=== PATIENT | female | born 1955 ===

== ENCOUNTER 2017-11-30 06:32 | Inpatient (IN) | payer OTHER ==
[2017-11-30 07:26] VITALS: BMI 29.8
[2017-11-30 07:57] LABS: BASO # 0.1 K/uL (0.0-0.2); BASO % 0.9 % (0.0-2.0); EOS # 0.2 K/uL (0.0-0.7); EOS % 2.7 % (0.0-4.0); HEMOGLOBIN 12.1 g/dL (12.0-16.0); LYMPH # 2.5 K/uL (1.0-4.3); LYMPH % 35.1 % (20.0-40.0); MEAN CELL VOLUME 79.4 fl (81.0-99.0); MEAN CORPUSCULAR HEMOGLOBIN 26.7 pg (27.0-31.0); MEAN CORPUSCULAR HGB CONC 33.7 g/dL (33.0-37.0); MONO # 0.6 K/uL (0.0-0.8); MONO % 8.7 % (0.0-10.0); NEUT # 3.7 K/uL (1.8-7.0); NEUT % 52.6 % (50.0-75.0); NRBC % 0.1 % (0.0-0.0); RBC 4.53 Mil/uL (3.80-5.20); RED CELL DISTRIBUTION WIDTH 15.8 % (11.5-14.5); WHITE BLOOD COUNT 7.1 K/uL (4.8-10.8)
[2017-11-30] MEDS ORDERED: Lactated Ringer's 1,000 ML IV ONE ×2 (08:00→11:15)
[2017-11-30] MEDS ORDERED: Propofol 10 mg/ml Inj (20 ML) ONE (08:11)
[2017-11-30] MEDS ORDERED: Rocuronium 10 mg/ml (5 ml) ONE (08:11)
[2017-11-30] MEDS ORDERED: Lidocaine 4% (Laryng-O-Jet) Kit MM ONE (08:12)
[2017-11-30] MEDS ORDERED: Succinylcholine 200 mg/10 ml Inj IV ONE (08:12)
[2017-11-30] MEDS ORDERED: Absorbable Gelatin Sponge Size 12-7 ONE (08:30)
[2017-11-30] MEDS ORDERED: Bupivacaine HCl 0.5% PF (30 ml) Inj ONE (08:30)
[2017-11-30] MEDS ORDERED: Bacitracin Ointment 30 GM TUBE ONE (08:31)
[2017-11-30] MEDS ORDERED: Thrombin Topical 5,000 Int Units Spray Kit ONE (08:31)
[2017-11-30] MEDS ORDERED: EPINEPHrine 1 mg/ml (1:1000) Inj ONE (08:42)
[2017-11-30] MEDS ORDERED: Midazolam 2 MG/2 ML VIAL ONE (08:57)
[2017-11-30] MEDS ORDERED: ePHEDrine 50 mg/ml Inj ONE (08:57)
[2017-11-30] MEDS ORDERED: Sodium Chloride 0.9% 20 ML IV ONE (09:06)
[2017-11-30] MEDS ORDERED: Dexamethasone 4 mg/1 ml ONE (09:42)
[2017-11-30] MEDS ORDERED: Phenylephrine 2.5% Opht Soln OD ONE (10:00)
[2017-11-30] MEDS ORDERED: Morphine 1 mg/ml preservative-free Inj(Duramorph) ONE (10:24)
[2017-11-30] MEDS ORDERED: EPINEPHrine 1 mg/ml (1:1000) Inj IV ONE (10:52)
[2017-11-30] MEDS ORDERED: Sodium Chloride 0.9% Inj (10mL) IV ONE (10:52)
[2017-11-30] MEDS ORDERED: Neostigmine 1:1000 (1 mg/ml) Inj ONE (10:52)
[2017-11-30] MEDS ORDERED: Bupivacaine 0.5% Inj(30mL) IJ ONE (10:52)
[2017-11-30] MEDS ORDERED: HYDROmorphone 0.5 mg/0.5 ml ISec IVP PRN (12:01)
--- NOTE | 2017-11-30 12:04 | PCM.SURG1 ---
Surgeon's Initial Post Op Note - Surgeon's Notes Surgeon: Emma Harvey MD Diving Judge: Aggie Palencia PA-C Type of Anesthesia: General Endo Pre-Operative Diagnosis: Right knee osteoarthritis Operative Findings: see op report Post-Operative Diagnosis: same as pre-op Operation Performed: R TKR Specimen/Specimens Removed: right knee bone and soft tissue Estimated Blood Loss: EBL {In ML}: 50 Date of Surgery/Procedure: 11/30/17 Time of Surgery/Procedure: 10:00
--- NOTE | 2017-11-30 12:37 | CP.PCM.HP ---
History of Present Illness - History of Present Illness History of Present Illness: 62 yo female with pmhx of HTN and HDL seen and evaluated in the PACU POD 0 s/p right total knee replacement. She has a hx of osteoarthritis of the right knee and had tried conservative therapy in the past which failed. Patient is mildly awake and alert, she tolerated well the procedure and states minimal pain. Due to anesthesia effects it is difficult to assess patient status and history. Chart and history reviewed. Patient denies N/V/F/C/SOB/CP at this time. PMHx: HLD, HTN PSHx: eye surgery FH: noncontributory. Meds: see bellow SH: denies tobacco, drinking and illicit drug use All: NKDA Present on Admission - Present on Admission Any Indicators Present on Admission: No Review of Systems - Review of Systems All systems: reviewed and no additional remarkable complaints except (HPI) Past Patient History - Past Medical History & Family History Past Medical History?: Yes - CARDIAC Hx Hypercholesterolemia: Yes Hx Hypertension: Yes - MUSCULOSKELETAL/RHEUMATOLOGICAL Hx Falls: No Hx Fractures: No Hx Osteoarthritis: Yes - SURGICAL HISTORY Hx Surgeries: Yes Hx Eye Surgery: Yes (R eye) - ANESTHESIA Hx Anesthesia: Yes Hx Anesthesia Reactions: No Hx Malignant Hyperthermia: No Has any member of the family had a problem w/ anesthesia?: No Meds Allergies/Adverse Reactions: Allergies Allergy/AdvReac Type Severity Reaction Status Date / Time No Known Allergies Allergy Verified 11/30/17 07:26 Physical Exam - Constitutional Appears: No Acute Distress - Eye Exam Eye Exam: EOMI, PERRL - Respiratory Exam Respiratory Exam: Clear to Auscultation Bilateral - Cardiovascular Exam Cardiovascular Exam: REGULAR RHYTHM, +S1, +S2 - GI/Abdominal Exam GI & Abdominal Exam: Soft. absent: Distended, Tenderness - Extremities Exam Extremities exam: Negative for: calf tenderness, pedal edema Additional comments: R knee immovilizer noted in place, dressing clean and dry. Results - Vital Signs Recent Vital Signs: Last Vital Signs Temp 96.2 F L 11/30/17 11:58 Pulse 88 11/30/17 12:15 Resp 18 11/30/17 12:15 BP 102/51 L 11/30/17 12:15 Pulse Ox 100 11/30/17 12:15 - Labs Result Diagrams: 11/30/17 07:49 Labs: Laboratory Results - last 24 hr 11/30/17 11/30/17 11/30/17 07:49 07:49 08:28 WBC 7.1 RBC 4.53 Hgb 12.1 Hct 36.0 MCV 79.4 L MCH 26.7 L MCHC 33.7 RDW 15.8 H Plt Count 179 MPV 10.0 Neut % (Auto) 52.6 Lymph % (Auto) 35.1 [place] % (Auto) 8.7 Eos % (Auto) 2.7 Baso % (Auto) 0.9 Neut # (Auto) 3.7 Lymph # (Auto) 2.5 [place] # (Auto) 0.6 Eos # (Auto) 0.2 Baso # (Auto) 0.1 Blood Type O POSITIVE Blood Type Confirm O POSITIVE Antibody Screen Negative BBK History Checked No verified bt Assessment & Plan - Assessment and Plan (Free Text) Assessment: 62 yo female patient with pmhx of osteoarthritis, HLD, and HTN admitted POD 0 s/p right total knee replacement. Plan: - surgical management as per Ortho - pain management - continue with home meds - f/u labs in am - DVT prophylaxis with lovenox start tomorrow - PT/OT consult, f/u recommendations Case discussed with Dr Srivastava.
--- NOTE | 2017-11-30 13:59 | RAD ---
Date of service: 11/30/2017 PROCEDURE: Right knee HISTORY: s/p RTKR COMPARISON: None TECHNIQUE: p.m. Lateral portable views right knee. FINDINGS: Components of the right knee arthroplasty in satisfactory position and alignment. Expected findings in the surgical bed/soft tissues. IMPRESSION: Satisfactory postoperative status.
[2017-11-30] MEDS ORDERED: ceFAZolin 1 GM in Sodium Chloride 0.9% 100 ML IVPB ONE ×2 (15:30→21:45)
[2017-11-30] MEDS ORDERED: ceFAZolin IV 1 gm in Dextrose 1 GM/50 ML BAG IVPB ONE ×2 (15:45→21:30)
[2017-11-30] MEDS: Lactated Ringer's 1,000 ML IV SCH (15:52)
[2017-11-30] MEDS: oxyCODONE 10 mg ER Tab (oxyCONTIN) PO SCH (21:37)
--- NOTE | 2017-12-01 00:19 | OP ---
PROCEDURE DATE: 11/30/2017 PREOPERATIVE DIAGNOSIS: Right knee osteoarthritis. POSTOPERATIVE DIAGNOSIS: Right knee osteoarthritis. PROCEDURE: Right total knee replacement. ATTENDING PHYSICIAN: Emma Harvey MD NUCLEAR PHYSICIST: Aggie Palencia PA-C IMPLANT SIZE: [employer] size-2 tibial tray, size-2 femur, size 15-mm polyethylene insert, 29-mm patella button. ANESTHESIA TYPE: General. ESTIMATED BLOOD LOSS: 100 mL. COMPLICATIONS: None. HISTORY: The patient with prolonged history of right knee pain progressively getting worse despite extensive conservative management, which included activity modification, injections, anti-inflammatory modification and physical therapy. X-rays had revealed advanced arthritis. The patient was indicated for total knee replacement due to continued pain and limited mobility. I had a detailed discussion with the patient in the office explaining the nature of the surgery, alternatives of surgery, risks and benefits, rehabilitation protocol and surgical markings. Risks of surgery include but not limited to continued pain, lack of motion, infection, vascular injury, DVT/PE, nerve injury including peroneal nerve dysfunction, reflex sympathetic dystrophy, compartment syndrome, unforeseen medical and/or anesthesia complications, limb loss, and even . The patient expressed an understanding of the risks and possible benefits of the procedure, and is also aware of the alternatives to surgery. PROCEDURE: On the day of the surgery, the patient was admitted to pre-operative holding area. A laterality sheet was completed confirming the correct operative site. The correct surgical knee was marked in the holding area and informed consent was signed from the patient. Once again, I reviewed the risks and benefits of the surgery with the patient in detail. These risks include but are not limited to continued pain, lack of motion, infection, vascular injury, DVT/PE, nerve injury including peroneal nerve dysfunction, reflex sympathetic dystrophy, symptomatic hardware, need for further procedure and surgeries, instability, iatrogenic fractures, compartment syndrome, unforeseen medical and/or anesthesia complications, limb loss, and even . The patient expressed an understanding of the risks and possible benefits of the procedure, also aware of the alternatives to surgery and signed the informed consent. The patient was transported to the operating room and placed in the supine position, general anesthesia was obtained. Exam under anesthesia revealed . A padded tourniquet was applied to patient's operative thigh and appropriate prophylactic antibiotics were given. The operative leg was draped and prepped in standard sterile manner. Time-out was completed, confirming patient's right knee to be the correct operative site. Using an Esmarch, the extremity was exsanguinated and tourniquet was inflated to 350 mmHg. The surgical incision markings were made using patella border, tibial tubercle, patella and quadriceps tendon. Using a 10 blade, a midline incision was made. Skin dissection was taken until the prepatellar fascia was identified and the corners of the patellar tendon were marked for proper closure at the end of the procedure. Using a fresh 10 blade, a medial parapatellar arthrotomy was performed. The knee was exposed in the standard manner. The deep MCL was elevated for exposure, medial and lateral menisci were removed, ACL and PCL were also transected. The tibia was subluxed anteriorly. Planned tibial cut was made with power saw, using extra-medullary guide, perpendicular to mechanical axis of the tibia. After the cut was made, the alignment was also checked and was found to be appropriate. Tibial cut surface was measured with trial base plate and it was noted that tibial baseplate was provide sufficient coverage without overhang. Tibial component was externally rotated and marked. Next, the knee was placed into 90 degrees of flexion. A drill hole was made within the femoral notch anterior to PCL insertion for placement of intramedullary femoral merlin. Intramedullary femoral merlin was inserted within the femoral canal and planned distal femoral cut was made. After the cut, knee was brought into full extension. Spacer blocks were used to check the extension balancing both in full extension and 30 degrees of flexion. It was found that a 15-mm trial spacer block allowed full extension with symmetric varus and valgus balancing. Next we proceed with Patella resurfacing. Lummi patella width was found to be 28 mm. Using the free-hand technique the arthritic patella surface was resected. Patella was sized using the guide and it was noted that 29 mm Patella dome button would be appropriate for the patient. Next the size of femoral component was determined using the posterior referencing guide. It was noted that a size-2 femur would be appropriate for this patient without causing any significant notching. A 4 x 1 cutting block was placed and flexion gap balancing was checked. The flexion gap was found to be symmetric to the extension gap. Anterior and posterior condyle, anterior and posterior chamfer cuts were made. Next, appropriate size box cut for femoral component was prepared using the guide. The femoral trial component was impacted onto the distal femur. Appropriate size tibial trial component was also placed on the cut surface of the tibia. Using the drill and punch, keel for tibial implant was prepared. Trial tibial tray was secured onto the tibia using pins. Different size trial polyethylene inserts were secured on to the trial tibial tray to critically assess the following parameters: Full range of motion, extension and flexion gap balancing, mid-flexion stability, anterior and posterior drawer, and patellar tracking. All parameter were found to be satisfactory with 15-mm insert. All the trial components were removed. Implants were opened on the back table. Cement was mixed and we proceed with cement fixation of the implants. Tibial tray, femoral component and patellar dome button were secured with cement. Polyethylene insert was secured onto the tibial tray using locking mechanism. The knee was reduced and brought into full extension. Cement was allowed to harden until final component fixation. Knee was taken through the final range of motion for stability testing, and found to be satisfactory. 60 mL of custom cocktail mixture was injected into posterior capsule, MCL, LCL, quadriceps tendon, and patellar tendon. Wound was copiously irrigated with sterile antibiotic solution using pulse lavage. Arthrotomy was closed using heavy suture and wound was closed in standard manner. Patient was extubated, transferred to stretcher and taken to the recovery room. Post-operative instructions were provided, physical therapy consult was requested along with DVT prophylaxis and appropriate pain medications. During this procedure, I was assisted by Nani Jimenez PA-C who assisted in positioning the patient on the operating room table as well as transferring the patient from the operating room table to the recovery room stretcher. In addition, Nani Jimenez PA-C assisted me during the actual operative procedure by positioning, protecting critical neurovascular structures, exposure of the joint, and proper positioning of the implants. The presence of Nani Jimenez PA-C as my operative it administrative assistant was medically necessary to ensure the utmost safety of the patient in the pre, intra-, and post-operative periods. Emma Harvey MD
[2017-12-01] MEDS: Lactated Ringer's 1,000 ML IV SCH ×2 (00:51→12:14)
[2017-12-01 06:50] LABS: HEMOGLOBIN 8.3 g/dL (12.0-16.0); LYMPH # 1.8 K/uL (1.0-4.3); LYMPH % 15.9 % (20.0-40.0); MEAN CELL VOLUME 78.9 fl (81.0-99.0); MEAN CORPUSCULAR HEMOGLOBIN 26.5 pg (27.0-31.0); MEAN CORPUSCULAR HGB CONC 33.6 g/dL (33.0-37.0); MEAN PLATELET VOLUME 9.8 fl (7.2-11.7); MONO # 0.9 K/uL (0.0-0.8); MONO % 8.2 % (0.0-10.0); NEUT # 8.7 K/uL (1.8-7.0); NEUT % 75.9 % (50.0-75.0); NRBC % 0.2 % (0.0-0.0); RBC 3.13 Mil/uL (3.80-5.20); RED CELL DISTRIBUTION WIDTH 15.7 % (11.5-14.5); WHITE BLOOD COUNT 11.4 K/uL (4.8-10.8)
[2017-12-01 06:56] LABS: BLOOD UREA NITROGEN 19 mg/dl (7-17); CALCIUM 8.9 mg/dL (8.4-10.2); GFR NON-AFRICAN AMERICAN > 60
--- NOTE | 2017-12-01 08:42 | CP.PCM.PN ---
Subjective - Date & Time of Evaluation Date of Evaluation: 12/01/17 Time of Evaluation: 08:25 - Subjective Subjective: 62 yo F s/p RTKR POD#1 Pt seen and examined at bedside, comfortable in bed Pt c/o mild right knee pain, currently well controlled with pain meds Pt denies SOB, chest pain, N/V/D, numbness/tingling RLE Objective - Vital Signs/Intake and Output Vital Signs (last 24 hours): Temp Pulse Resp BP Pulse Ox 98.4 F 80 20 101/59 L 98 12/01/17 08:28 12/01/17 08:28 12/01/17 08:28 12/01/17 08:28 12/01/17 08:28 - Medications Medications: Current Medications Acetaminophen (Tylenol 325mg Tab) 325 mg PO Q4 PRN PRN Reason: pain1-3 Aspirin (Ecotrin) 325 mg PO BID [facility] Celecoxib (Celebrex) 100 mg PO Q12 [facility] Last Admin: 11/30/17 21:41 Dose: 100 mg Docusate Sodium (Colace) 100 mg PO TID [facility] Last Admin: 11/30/17 17:28 Dose: 100 mg Enoxaparin Sodium (Lovenox) 40 mg SC DAILY [facility]; Protocol Hydromorphone HCl (Dilaudid) 0.5 mg IVP Q10M PRN PRN Reason: Pain, moderate (4-7) Lactated Ringer's (Lactated Ringer's) 1,000 mls @ 125 mls/hr IV .Q8H [facility] Last Admin: 12/01/17 00:51 Dose: 125 mls/hr Oxycodone HCl (Oxycontin Extended Release Tab) 10 mg PO Q12 [facility] Stop: 12/14/17 21:01 Last Admin: 11/30/17 21:37 Dose: 10 mg Oxycodone HCl (Oxycodone Immediate Release Tab) 5 mg PO Q4 PRN PRN Reason: pain4-6 - Labs Labs: 12/01/17 06:35 12/01/17 06:35 - Constitutional Appears: Well, Non-toxic, No Acute Distress - Respiratory Exam Respiratory Exam: Clear to Ausculation Bilateral, NORMAL BREATHING PATTERN - Cardiovascular Exam Cardiovascular Exam: REGULAR RHYTHM, RRR - Extremities Exam Additional comments: RLE: Knee dressing C/D/I +ttp right mid calf, calf soft and compressible, no ttp left calf N/V intact distally Distal pulses wnl Normal ROM right ankle No foot drop Assessment and Plan - Assessment and Plan (Free Text) Assessment: 62 yo F s/p RTKR POD#1 Plan: Pain Control DVT ppx- start aspirin 325mg BID today SCD b/l LE B/L LE venous US- r/o DVT RLE F/U daily labs- monitor h/h Incentive Spirometer PT/OT- WBAT RLE Discussed with Dr. Harvey
[2017-12-01] MEDS: Aspirin 325 mg EC Tablets PO SCH ×2 (08:52→16:52)
[2017-12-01] MEDS ORDERED: Enoxaparin 40 mg Syringe SC SCH (09:00)
[2017-12-01] MEDS: oxyCODONE 10 mg ER Tab (oxyCONTIN) PO SCH ×2 (12:38→22:00)
--- NOTE | 2017-12-01 14:22 | US ---
Date of service: 12/01/2017 HISTORY: R/O RLE DVT. PRIORS: None. FINDINGS: 2-D, color and duplex Doppler analysis of bilateral extremity venous circulation using routine protocol from the femoral veins through the popliteal veins. Venous compressibility: Normal. Flow and augmentation patterns: Normal. Visualized veins upper third of calf: Normal. Jones cyst: None. There is a 2.1 x 1.4 x 0.6 cm enlarged lymph node in the right groin and 1.9 x 1.0 x 0.4 cm enlarged lymph node in the left groin. IMPRESSION: No sonographic or Doppler evidence for DVT in the lower extremities. Bilateral inguinal lymphadenopathy which may be reactive infectious or inflammatory in etiology. Clinical follow-up is advised.
--- NOTE | 2017-12-01 16:07 | CP.PCM.PN ---
Subjective - Date & Time of Evaluation Date of Evaluation: 12/01/17 Time of Evaluation: 11:00 - Subjective Subjective: patient seen and examined at bedside. doing well post operatively. pain well controlled. no complaints offered. no acute events overnight. Objective - Vital Signs/Intake and Output Vital Signs (last 24 hours): Temp Pulse Resp BP Pulse Ox 98.4 F 80 20 101/59 L 98 12/01/17 08:28 12/01/17 08:28 12/01/17 08:28 12/01/17 08:28 12/01/17 08:28 - Medications Medications: Current Medications Acetaminophen (Tylenol 325mg Tab) 325 mg PO Q4 PRN PRN Reason: pain1-3 Aspirin (Ecotrin) 325 mg PO BID [facility] Atorvastatin Calcium (Lipitor) 20 mg PO DAILY [facility] Celecoxib (Celebrex) 100 mg PO Q12 [facility] Last Admin: 11/30/17 21:41 Dose: 100 mg Docusate Sodium (Colace) 100 mg PO TID [facility] Last Admin: 12/01/17 12:32 Dose: 100 mg Ferrous Sulfate (Feosol) 325 mg PO BID [facility] Last Admin: 12/01/17 12:35 Dose: 325 mg Hydromorphone HCl (Dilaudid) 0.5 mg IVP Q10M PRN PRN Reason: Pain, moderate (4-7) Lactated Ringer's (Lactated Ringer's) 1,000 mls @ 125 mls/hr IV .Q8H [facility] Last Admin: 12/01/17 00:51 Dose: 125 mls/hr Oxycodone HCl (Oxycontin Extended Release Tab) 10 mg PO Q12 [facility] Stop: 12/14/17 21:01 Last Admin: 12/01/17 12:38 Dose: 10 mg Oxycodone HCl (Oxycodone Immediate Release Tab) 5 mg PO Q4 PRN PRN Reason: pain4-6 - Labs Labs: 12/01/17 06:35 12/01/17 06:35 - Constitutional Appears: Well, Non-toxic, No Acute Distress - Head Exam Head Exam: NORMAL INSPECTION - Eye Exam Eye Exam: Normal appearance - Respiratory Exam Respiratory Exam: Clear to Ausculation Bilateral, NORMAL BREATHING PATTERN - Cardiovascular Exam Cardiovascular Exam: REGULAR RHYTHM, +S1, +S2 - GI/Abdominal Exam GI & Abdominal Exam: Soft, Normal Bowel Sounds. absent: Tenderness - Extremities Exam Additional comments: right knee in dressing - Neurological Exam Neurological Exam: Alert, Awake - Skin Skin Exam: Dry, Normal Color, Warm Assessment and Plan - Assessment and Plan (Free Text) Assessment: 62 yo female patient with pmhx of osteoarthritis, HLD, and HTN admitted POD 1 s/p right total knee replacement. Plan: - surgical management as per Ortho - pain management - continue with home meds - f/u labs in am, trend hgb - DVT prophylaxis with ASA 325mg bid - PT/OT consult, f/u recommendations
[2017-12-01] MEDS: oxyCODONE 5 mg Immediate Release Tab PO PRN ×2 (17:03→21:59)
[2017-12-02 06:30] LABS: BASO # 0.1 K/uL (0.0-0.2); BASO % 1.5 % (0.0-2.0); EOS # 0.2 K/uL (0.0-0.7); EOS % 1.9 % (0.0-4.0); HEMOGLOBIN 7.8 g/dL (12.0-16.0); LYMPH # 4.2 K/uL (1.0-4.3); MEAN CELL VOLUME 80.5 fl (81.0-99.0); MEAN CORPUSCULAR HEMOGLOBIN 26.3 pg (27.0-31.0); MEAN CORPUSCULAR HGB CONC 32.7 g/dL (33.0-37.0); MEAN PLATELET VOLUME 9.5 fl (7.2-11.7); MONO # 0.8 K/uL (0.0-0.8); MONO % 8.6 % (0.0-10.0); NEUT # 4.4 K/uL (1.8-7.0); NRBC % 0.1 % (0.0-0.0); RBC 2.97 Mil/uL (3.80-5.20); RED CELL DISTRIBUTION WIDTH 15.7 % (11.5-14.5); WHITE BLOOD COUNT 9.7 K/uL (4.8-10.8)
[2017-12-02 06:41] LABS: BLOOD UREA NITROGEN 21 mg/dl (7-17); CALCIUM 8.8 mg/dL (8.4-10.2); GFR NON-AFRICAN AMERICAN > 60
[2017-12-02] MEDS: Aspirin 325 mg EC Tablets PO SCH ×2 (10:33→17:13)
[2017-12-02] MEDS: oxyCODONE 10 mg ER Tab (oxyCONTIN) PO SCH ×2 (10:50→21:55)
[2017-12-02] MEDS: Pantoprazole 40 mg EC Tab PO SCH (10:51)
--- NOTE | 2017-12-02 13:05 | CP.PCM.PN ---
Subjective - Date & Time of Evaluation Date of Evaluation: 12/02/17 Time of Evaluation: 10:00 - Subjective Subjective: Patient seen and examined at bedside comfortable. Pain is well controlled. Found to be anemic with AM labs, 1 unit PRBC's being transfused. No other complaints. Denies CP/SOB/YEE/fever. Objective - Vital Signs/Intake and Output Vital Signs (last 24 hours): Temp Pulse Resp BP Pulse Ox 99.3 F 74 18 126/73 96 12/02/17 11:21 12/02/17 11:21 12/02/17 11:21 12/02/17 11:21 12/02/17 08:13 Intake and Output: 12/02/17 12/02/17 06:59 18:59 Intake Total 0 Balance 0 - Medications Medications: Current Medications Acetaminophen (Tylenol 325mg Tab) 325 mg PO Q4 PRN PRN Reason: pain1-3 Aspirin (Ecotrin) 325 mg PO BID [facility] Last Admin: 12/02/17 10:33 Dose: 325 mg Atorvastatin Calcium (Lipitor) 20 mg PO DAILY [facility] Last Admin: 12/02/17 10:33 Dose: 20 mg Celecoxib (Celebrex) 100 mg PO Q12 [facility] Last Admin: 12/02/17 10:33 Dose: 100 mg Docusate Sodium (Colace) 100 mg PO TID [facility] Last Admin: 12/02/17 10:33 Dose: 100 mg Ferrous Sulfate (Feosol) 325 mg PO BID [facility] Last Admin: 12/02/17 10:32 Dose: 325 mg Hydromorphone HCl (Dilaudid) 0.5 mg IVP Q10M PRN PRN Reason: Pain, moderate (4-7) Lactated Ringer's (Lactated Ringer's) 1,000 mls @ 125 mls/hr IV .Q8H [facility] Last Admin: 12/01/17 12:14 Dose: Not Given Oxycodone HCl (Oxycontin Extended Release Tab) 10 mg PO Q12 [facility] Stop: 12/14/17 21:01 Last Admin: 12/02/17 10:50 Dose: 10 mg Oxycodone HCl (Oxycodone Immediate Release Tab) 5 mg PO Q4 PRN PRN Reason: pain4-6 Last Admin: 12/01/17 21:59 Dose: 5 mg Pantoprazole Sodium (Protonix Ec Tab) 40 mg PO DAILY [facility] Last Admin: 12/02/17 10:51 Dose: 40 mg - Labs Labs: 12/02/17 06:20 12/02/17 06:20 - Extremities Exam Additional comments: R knee: Dressings CDI, Dressings removed revealing wound CDI with nafisa, no drainage mild swelling and tenderness 2nd to surgery sensation intact SP/DP/TN motor intact EHL/FHL/TA/G pedal pulses intact comps soft NT b/l Assessment and Plan (1) Osteoarthritis of right knee Assessment & Plan: POD #2 s/p R TKA doing well -LE duplex neg for DVT -PT/OT WBAT -DVT ppx -Dressings changed -monitor H/H following transfusion -discharge planning -will follow -above d/w Dr. Harvey in agreement Status: Acute Radiology Interpretation - Notes: Notes:: Accession No. : [id number] Patient Name / ID : LINWOOD MARSHALL / [id number] Exam Date : 12/01/2017 10:25:07 ( Approved ) Study Comment : Sex / Age : F / 62Y Creator : Earlene Quintero MD Dictator : Earlene Quintero MD Wire Winding Machine Tender : Motor Electrician : Earlene Quintero MD Approver2 : Report Date : 12/01/2017 14:18:51 My Comment : Date of service: 12/01/2017 HISTORY: R/O RLE DVT. PRIORS: None. FINDINGS: 2-D, color and duplex Doppler analysis of bilateral extremity venous circulation using routine protocol from the femoral veins through the popliteal veins. Venous compressibility: Normal. Flow and augmentation patterns: Normal. Visualized veins upper third of calf: Normal. Jones cyst: None. There is a 2.1 x 1.4 x 0.6 cm enlarged lymph node in the right groin and 1.9 x 1 .0 x 0.4 cm enlarged lymph node in the left groin. IMPRESSION: No sonographic or Doppler evidence for DVT in the lower extremities. Bilateral inguinal lymphadenopathy which may be reactive infectious or inflammatory in etiology. Clinical follow-up is advised.
--- NOTE | 2017-12-02 16:04 | CP.PCM.PN ---
Subjective - Date & Time of Evaluation Date of Evaluation: 12/02/17 Time of Evaluation: 11:00 - Subjective Subjective: patient seen and examined at bedside. hgb continues to drop. patient states she feels well. denies dizziness, palpitations, cp, sob. normal BM and urinary habits. pain well controlled. Objective - Vital Signs/Intake and Output Vital Signs (last 24 hours): Temp Pulse Resp BP Pulse Ox 99.3 F 74 18 126/73 96 12/02/17 11:21 12/02/17 11:21 12/02/17 11:21 12/02/17 11:21 12/02/17 08:13 Intake and Output: 12/02/17 12/02/17 06:59 18:59 Intake Total 375 Balance 375 - Medications Medications: Current Medications Acetaminophen (Tylenol 325mg Tab) 325 mg PO Q4 PRN PRN Reason: pain1-3 Aspirin (Ecotrin) 325 mg PO BID [facility] Last Admin: 12/02/17 10:33 Dose: 325 mg Atorvastatin Calcium (Lipitor) 20 mg PO DAILY [facility] Last Admin: 12/02/17 10:33 Dose: 20 mg Celecoxib (Celebrex) 100 mg PO Q12 [facility] Last Admin: 12/02/17 10:33 Dose: 100 mg Docusate Sodium (Colace) 100 mg PO TID [facility] Last Admin: 12/02/17 14:31 Dose: 100 mg Ferrous Sulfate (Feosol) 325 mg PO BID [facility] Last Admin: 12/02/17 10:32 Dose: 325 mg Hydromorphone HCl (Dilaudid) 0.5 mg IVP Q10M PRN PRN Reason: Pain, moderate (4-7) Lactated Ringer's (Lactated Ringer's) 1,000 mls @ 125 mls/hr IV .Q8H [facility] Last Admin: 12/01/17 12:14 Dose: Not Given Oxycodone HCl (Oxycontin Extended Release Tab) 10 mg PO Q12 [facility] Stop: 12/14/17 21:01 Last Admin: 12/02/17 10:50 Dose: 10 mg Oxycodone HCl (Oxycodone Immediate Release Tab) 5 mg PO Q4 PRN PRN Reason: pain4-6 Last Admin: 12/01/17 21:59 Dose: 5 mg Pantoprazole Sodium (Protonix Ec Tab) 40 mg PO DAILY [facility] Last Admin: 12/02/17 10:51 Dose: 40 mg - Labs Labs: 12/02/17 06:20 12/02/17 06:20 - Additional Findings Additional findings: - Constitutional Appears: Well, Non-toxic, No Acute Distress - Head Exam Head Exam: NORMAL INSPECTION - Eye Exam Eye Exam: Normal appearance - Respiratory Exam Respiratory Exam: Clear to Ausculation Bilateral, NORMAL BREATHING PATTERN - Cardiovascular Exam Cardiovascular Exam: REGULAR RHYTHM, +S1, +S2 - GI/Abdominal Exam GI & Abdominal Exam: Soft, Normal Bowel Sounds. absent: Tenderness - Extremities Exam Additional comments: right knee in dressing - Neurological Exam Neurological Exam: Alert, Awake - Skin Skin Exam: Dry, Normal Color, Warm Assessment and Plan - Assessment and Plan (Free Text) Assessment: 62 yo female patient with pmhx of osteoarthritis, HLD, and HTN admitted POD 2 s/p right total knee replacement. Now with anemia, 1pRBC transfusing. Plan: - surgical management as per Ortho - pain management - continue with home meds - transfuse pRBC prn - f/u labs in am, trend hgb - DVT prophylaxis with ASA 325mg bid - PT/OT consult, f/u recommendations
[2017-12-03 06:19] LABS: HEMOGLOBIN 8.7 g/dL (12.0-16.0); MEAN CELL VOLUME 81.1 fl (81.0-99.0); MEAN CORPUSCULAR HEMOGLOBIN 27.5 pg (27.0-31.0); MEAN CORPUSCULAR HGB CONC 33.9 g/dL (33.0-37.0); RBC 3.18 Mil/uL (3.80-5.20); RED CELL DISTRIBUTION WIDTH 16.2 % (11.5-14.5); WHITE BLOOD COUNT 9.4 K/uL (4.8-10.8)
[2017-12-03 07:01] LABS: BLOOD UREA NITROGEN 16 mg/dl (7-17); GFR NON-AFRICAN AMERICAN > 60
[2017-12-03 07:55] VITALS: RESP 19; O2SAT 96
[2017-12-03 07:56] VITALS: PULSE 88; TEMP 99.2
[2017-12-03] MEDS: oxyCODONE 10 mg ER Tab (oxyCONTIN) PO SCH (08:43)
[2017-12-03] MEDS: Pantoprazole 40 mg EC Tab PO SCH (08:44)
[2017-12-03] MEDS: Aspirin 325 mg EC Tablets PO SCH (08:55)
[2017-12-03 10:40] VITALS: BP 110/63
--- NOTE | 2017-12-03 10:49 | CP.PCM.PN ---
Subjective - Date & Time of Evaluation Date of Evaluation: 12/03/17 Time of Evaluation: 10:47 - Subjective Subjective: Patient states pain is controlled. Denies CP/SOB/dizziness. Objective - Vital Signs/Intake and Output Vital Signs (last 24 hours): Temp Pulse Resp BP Pulse Ox 99.2 F 88 19 110/63 96 12/03/17 07:54 12/03/17 07:54 12/03/17 07:54 12/03/17 09:00 12/03/17 07:54 - Medications Medications: Current Medications Acetaminophen (Tylenol 325mg Tab) 325 mg PO Q4 PRN PRN Reason: pain1-3 Aspirin (Ecotrin) 325 mg PO BID [facility] Last Admin: 12/03/17 08:55 Dose: 325 mg Atorvastatin Calcium (Lipitor) 20 mg PO DAILY [facility] Last Admin: 12/02/17 10:33 Dose: 20 mg Celecoxib (Celebrex) 100 mg PO Q12 [facility] Last Admin: 12/03/17 08:44 Dose: 100 mg Docusate Sodium (Colace) 100 mg PO TID [facility] Last Admin: 12/03/17 08:44 Dose: 100 mg Ferrous Sulfate (Feosol) 325 mg PO BID [facility] Last Admin: 12/03/17 08:44 Dose: 325 mg Hydromorphone HCl (Dilaudid) 0.5 mg IVP Q10M PRN PRN Reason: Pain, moderate (4-7) Lactated Ringer's (Lactated Ringer's) 1,000 mls @ 125 mls/hr IV .Q8H [facility] Last Admin: 12/01/17 12:14 Dose: Not Given Oxycodone HCl (Oxycontin Extended Release Tab) 10 mg PO Q12 [facility] Stop: 12/14/17 21:01 Last Admin: 12/03/17 08:43 Dose: 10 mg Oxycodone HCl (Oxycodone Immediate Release Tab) 5 mg PO Q4 PRN PRN Reason: pain4-6 Last Admin: 12/01/17 21:59 Dose: 5 mg Pantoprazole Sodium (Protonix Ec Tab) 40 mg PO DAILY [facility] Last Admin: 12/03/17 08:44 Dose: 40 mg - Labs Labs: 12/03/17 05:35 12/03/17 05:00 - Extremities Exam Additional comments: Right knee: incision intact, dry, no erythema, Calves osft NT neg homans +DP/PT sensation intact +DP/PT pules Assessment and Plan (1) Osteoarthritis of right knee Assessment & Plan: s/p TKR ortho stable for d/c f/u [address] Harvey keep incision clean and dry cont PT cont VTE proph d/w Dr. Harvey, agrees with above Status: Acute
--- NOTE | 2017-12-06 06:45 | CP.PCM.DIS ---
Provider - Provider Date of Admission: 11/30/17 12:04 Attending physician: Leonardo Cee MD Primary care physician: Prem Alegre MD Time Spent in preparation of Discharge (in minutes): 30 Hospital Course - Lab Results Lab Results: Most Recent Lab Values WBC 9.4 K/uL (4.8-10.8) 12/03/17 05:35 RBC 3.18 Mil/uL (3.80-5.20) L 12/03/17 05:35 Hgb 8.7 g/dL (12.0-16.0) L 12/03/17 05:35 Hct 25.8 % (34.0-47.0) L 12/03/17 05:35 MCV 81.1 fl (81.0-99.0) 12/03/17 05:35 MCH 27.5 pg (27.0-31.0) 12/03/17 05:35 MCHC 33.9 g/dL (33.0-37.0) 12/03/17 05:35 RDW 16.2 % (11.5-14.5) H 12/03/17 05:35 Plt Count 109 K/uL (130-400) L 12/03/17 05:35 MPV 9.5 fl (7.2-11.7) 12/02/17 06:20 Neut % (Auto) 45.0 % (50.0-75.0) L 12/02/17 06:20 Lymph % (Auto) 43.0 % (20.0-40.0) H 12/02/17 06:20 Pine % (Auto) 8.6 % (0.0-10.0) 12/02/17 06:20 Eos % (Auto) 1.9 % (0.0-4.0) 12/02/17 06:20 Baso % (Auto) 1.5 % (0.0-2.0) 12/02/17 06:20 Neut # (Auto) 4.4 K/uL (1.8-7.0) 12/02/17 06:20 Lymph # (Auto) 4.2 K/uL (1.0-4.3) 12/02/17 06:20 Pine # (Auto) 0.8 K/uL (0.0-0.8) 12/02/17 06:20 Eos # (Auto) 0.2 K/uL (0.0-0.7) 12/02/17 06:20 Baso # (Auto) 0.1 K/uL (0.0-0.2) 12/02/17 06:20 Sodium 137 mmol/l (132-148) 12/03/17 05:00 Potassium 4.1 MMOL/L (3.6-5.0) 12/03/17 05:00 Chloride 102 mmol/L (98-107) 12/03/17 05:00 Carbon Dioxide 32 mmol/L (22-30) H 12/03/17 05:00 Anion Gap 7 (10-20) L 12/03/17 05:00 BUN 16 mg/dl (7-17) 12/03/17 05:00 Creatinine 0.8 mg/dl (0.7-1.2) 12/03/17 05:00 Est GFR ( Amer) > 60 12/03/17 05:00 Est GFR (Non-Af Amer) > 60 12/03/17 05:00 Random Glucose 95 mg/dL (65-105) 12/03/17 05:00 Calcium 9.0 mg/dL (8.4-10.2) 12/03/17 05:00 Blood Type O POSITIVE 11/30/17 07:49 Blood Type Confirm O POSITIVE 11/30/17 08:28 Antibody Screen Negative 11/30/17 07:49 Crossmatch See Detail 11/30/17 07:49 BBK History Checked No verified bt 11/30/17 07:49 - Hospital Course Hospital Course: This is a 62 y/o female admitted for right TKR for severe OA. Has a hx of HTN. She had some issues with anemia postop and was given transfusion. She did very well Started on phys therapy and given pain meds. She was transferred to [facility] subacute rehab for further phsy therapy. Discharge Exam - Head Exam Head Exam: NORMAL INSPECTION - Eye Exam Eye Exam: Normal appearance - Respiratory Exam Respiratory Exam: Clear to PA & Lateral - Cardiovascular Exam Cardiovascular Exam: REGULAR RHYTHM - GI/Abdominal Exam GI & Abdominal Exam: Normal Bowel Sounds - Neurological Exam Neurological exam: CN II-XII Intact, Oriented x3 Discharge Plan - Discharge Medications Prescriptions: Aspirin [Aspirin EC] 325 mg PO BID #60 tablet.dr - Follow Up Plan Condition: GOOD Disposition: TRANSF TO SNF Additional Instructions: patient was transferred to [facility] for further PT and rehab. Referrals: Prem Alegre [Primary Care Provider] -
--- NOTE | 2017-12-07 13:08 | PQF ---
PROVIDER RESPONSE TEXT: Anemia due to postoperative blood loss REVIEWER QUERY TEXT: Anemia Type Anemia is documented in the Medical Record. Please specify the cause (includes suspected or probable cause) Such as: -- Due to acute blood loss -- Due to chronic blood loss -- Due to iron deficiency -- Due to postoperative blood loss -- Due to chronic disease -- Other, please specify The patient's Clinical Indicators include: anemia- 12/[address] Pinedo Query created by: Gricel Ovalles on 12/03/2017 4:21 PM Electronically signed by: Leonardo Cee MD 12/07/2017 1:05 PM
== END 2017-12-03 13:35 | DRG 470 ==
LOC: H.OPSURG 06:32 → H.MEDSURG1 12:04
PROVIDERS: ADMIT Family Medicine; ATTEND Family Medicine
PROC: 0SRC0J9 Replacement of Right Knee Joint with Synthetic Substitute, Cemented, Open Approach (ICD-10-PCS; principal; 2017-11-30 08:50)
PROC: 30233N1 Transfusion of Nonautologous Red Blood Cells into Peripheral Vein, Percutaneous Approach (ICD-10-PCS; 2017-12-02)
DX: M17.11 Unilateral primary osteoarthritis, right knee (principal); D62 Acute posthemorrhagic anemia; I10 Essential (primary) hypertension; E78.5 Hyperlipidemia, unspecified; E78.00 Pure hypercholesterolemia, unspecified